=== PATIENT | female | born 1955 | race Caucasian/White ===

== ENCOUNTER 2018-05-14 07:09 | Day surgery (SDC) | payer BC ==
[2018-05-14] VITALS (8 sets, daily range): BP systolic 115–137; BP diastolic 61–86
[~2018-05-14] VITALS: Ht 162.6 cm; Wt 83.9 kg
[2018-05-14] MEDS ORDERED: LOSARTAN-HCTZ1 EACH ORAL (07:45)
--- NOTE | 2018-05-14 09:24 | Short Stay Surgery H&P ---
History of Present Illness History of Present Illness Chief Complaint screening colon HPI Nanette Stewart is a 63 year old female who was admitted on for Colon Screening Patient History Allergies: Coded Allergies: No Known Allergies (Unverified , 05/14/18) PAST MEDICAL HISTORY: (1) HTN (hypertension) Medication History Scheduled Losartan/Hydrochlorothiazide (Losartan-Hctz 100-12.5 Mg Tab), 1 TAB ORAL DAILY, (Reported) Review of Systems Cardiovascular: Reports: no symptoms Respiratory: Reports: no symptoms Skeletal: Reports: no symptoms Gastrointestinal: Reports: no symptoms Genitourinary: Reports: no symptoms Neurologic: Reports: no symptoms Endocrine: Reports: no symptoms Hematologic: Reports: no symptoms Physical Exam Vital Signs Last Vital Signs Date Time Temp Pulse Resp B/P (MAP) Pulse Ox O2 Delivery O2 Flow Rate FiO2 05/14/18 07:40 Room Air 05/14/18 07:35 98.1 66 18 125/78 96 Skin: normal HENT: normal Heart: normal Lungs: normal Abdomen: normal Extremities: normal Plan Plan of Care colonoscopy Attestation Are the patient's medical conditions optimized for surgery? Attestation Response: yes Roshan Bush MD May 14, 2018 09:24
[2018-05-14] MEDS ORDERED: Propofol 200mg/20ml IV ONE (09:30)
[2018-05-14] MEDS ORDERED: LR 1000ml ONE (09:30)
[2018-05-14] MEDS ORDERED: Lidocaine 1% MPF 10mg/ml 5ml ONE (09:30)
--- NOTE | 2018-05-14 09:39 | Anethesia Preoperative Eval ---
Anesthesia Pre-op PMH/ROS General Date of Evaluation: May 14, 2018 Anesthesiologist: Александр ASA Score: ASA 2 Mallampati Score Class I : Soft palate, uvula, fauces, pillars visible Class II: Soft palate, uvula, fauces visible Class III: Soft palate, base of uvula visible Class IV: Only hard plate visible Mallampati Classification: Class II Surgeon: Eleazar Diagnosis: Screening Surgical Procedure: Colonoscopy Anesthesia History: none Family History: no anesthesia problems Allergies: Coded Allergies: No Known Allergies (Unverified , 05/14/18) Medications: see eMAR Patient NPO?: Yes NPO Date: May 13, 2018 NPO Time: 17:00 Past Medical History Cardiovascular: Reports: HTN; Denies: CAD, MA, valve dz, arrhythmia, other Pulmonary: Denies: asthma, COPD, VALENTIN, other Gastrointestinal/Genitourinary: Denies: GERD, CRI, ESRD, other Neurologic/Psychiatric: Denies: dementia, CVA, depression/anxiety, TIA, other Endocrine: Denies: DM, hypothyroidism, steroids, other HEENT: Denies: cataract (L), cataract (R), glaucoma, INAJA (L), INAJA (R), other Hematology/Immune: Denies: anemia, DVT, bleeding disorder, other Musculoskeletal/Integumentary: Denies: OA, RA, DJD, DDD, edema, other Other: obesity PSxH Narrative: Denies Anesthesia Pre-op Phys. Exam Physician Exam Last Vital Signs Date Time Temp Pulse Resp B/P (MAP) Pulse Ox O2 Delivery O2 Flow Rate FiO2 05/14/18 07:40 Room Air 05/14/18 07:35 98.1 66 18 125/78 96 Constitutional: NAD Cardiovascular: RRR Respiratory: CTA Airway Exam Mallampati Score: Class II MO: full ROM: full Teeth: intact Anesthesia Pre-op A/P Labs see chart Studies Pre-op Studies: EKG - sr Risk Assessment & Plan Assessment: ASA II Plan: MAC Status Change Before Surgery: No Pre-Antibiotics Drug: N/A Nazanin Giron MD May 14, 2018 09:39
--- NOTE | 2018-05-14 09:39 | Immediate Post-Op Evaluation ---
Immediate Post-Op Evalulation Immediate Post-Op Evalulation Procedure: Colonoscopy Date of Evaluation: May 14, 2018 Time of Evaluation: 10:12 IV Fluids: 500 Blood Products: 0 Estimated Blood Loss: 0 Urinary Output: 0 Blood Pressure Systolic: 134 Blood Pressure Diastolic: 79 Pulse Rate: 64 Respiratory Rate: 16 O2 Sat by Pulse Oximetry: 96 Temperature (Fahrenheit): 98 Pain Score (1-10): 0 Nausea: No Vomiting: No Complications 0 Patient Status: awake, reacts, patent, none Hydration Status: adequate Drug: N/A Nazanin Giron MD May 14, 2018 09:39
[2018-05-14] MEDS ORDERED: LR 1000ml 1,000 ML IVLG SCH (09:40)
--- NOTE | 2018-05-14 09:40 | 48 Hour Post Anesthesia Eval ---
Post Anesthesia Evaluation Procedure: Colonoscopy Date of Evaluation: May 14, 2018 Airway: patent Nausea: No Vomiting: No Pain Intensity: 0 Hydration Status: adequate Cardiopulmonary Status: at base;ome Mental Status/LOC: patient returned to baseline Post-Anesthesia Complications: 0 Follow-up care needed: ready to discharge Nazanin Giron MD May 14, 2018 09:40
[2018-05-14] MEDS ORDERED: DiphenhydrAMINE 50mg/ml Inj IVP PRN (09:45)
[2018-05-14] MEDS ORDERED: Hydromorphone 0.5mg/0.5ml inj IVP PRN (09:45)
[2018-05-14] MEDS ORDERED: fentaNYL 100 mcg/2 mL IV PRN (09:45)
--- NOTE | 2018-05-14 10:09 | Endoscopy Procedure Note ---
Endoscopy Procedure Note General Indication for Procedure: screening colon Procedures Performed: colonoscopy Operative Findings/Diagnosis: 16 polyps Specimen: yes Pt Tolerated Procedure Well: Yes Estimated Blood Loss: none Anesthesia Anesthesiologist: [email or web address] Anesthesia: MAC Inserted Devices Implant(s) used?: No Quality Quality of Bowel Preparation: Good Did scope reach the cecum?: Yes Was there any complications?: No GI Core Measures 50 yrs or older w/o bx or poly: No 10yrs. F/U not recommended: Yes If not recommended, why?: Above average risk 10 yrs. F/U needed: Yes 18 years or older w/prev. colo: Yes <3yrs. since last colonoscopy: No Roshan Bush MD May 14, 2018 10:09
--- NOTE | 2018-05-14 15:15 | Procedure Note ---
DATE OF PROCEDURE: 05/14/2018 SURGEON: Roshan Bush M.D. PROCEDURE: Colonoscopy with biopsy and snare polypectomy. ANESTHESIA: Per Dr. Fountain. INSTRUMENT: Olympus adult flexible colonoscope. INDICATIONS: Screening colonoscopy and history of colonic polyps. REASON FOR PROCEDURE: The procedure, risks, benefits, and possible consequences, including hemorrhage, aspiration, perforation and infection, and alternative treatments, were explained to the patient/legal guardian by Dr. Roshan Bush and the patient/legal guardian understood and accepted these risks. PROCEDURE IN DETAIL: After informed consent was obtained and the patient was adequately sedated, first rectal exam was performed, which was normal. Then, the scope was advanced from the rectum into the cecum. Quality of prep was good except for the cecum. Unfortunately, examination of cecum was extremely limited. There was a thick fluid attached to the cecum making examination very limited. The patient had a total of 16 polyps. 15 of these polyps were removed with cold biopsy, one with a snare. There were four polyps in the transverse colon, eight polyps in descending, and two in the rectum. The one polyp that was removed with the snare was in the descending and measured roughly about 6 mm and was flat. The rest of the polyps removed with the cold biopsy forceps technique, there were all small. The patient had also scattered diverticulosis in the left colon, moderate in amount. Retroflexion of rectum showed evidence of few small nonbleeding internal hemorrhoids. SUMMARY OF FINDINGS: 1. Good colonoscopy except for cecum examination. 2. Sixteen polyps removed. See above for details. 3. Diverticulosis. 4. Internal hemorrhoids. RECOMMENDATIONS: Recommend repeat colonoscopy in one year given 16 polyps. Also follow biopsy result and treat accordingly. Roshan Bush M.D. DR: HAYDEE JOB#: [id number] CC:
--- NOTE | 2018-05-15 13:47 | Cardiology Report ---
APPROVED REPORT EKG Measurement Heart [id number] MD [id number] Normal sinus rhythm with sinus arrhythmia Normal ECG
== END 2018-05-14 11:05 | disposition home or self-care (01) ==
LOC: GAS 07:09
DX: Z12.11 Encounter for screening for malignant neoplasm of colon (principal); D12.4 Benign neoplasm of descending colon; D12.3 Benign neoplasm of transverse colon; K63.5 Polyp of colon; D12.8 Benign neoplasm of rectum; I10 Essential (primary) hypertension
CPT/HCPCS: 45380; 45385; 93005; J2704; 94003; 94150